=== PATIENT | female | born 1950 | race Two or more races ===

== ENCOUNTER 2018-01-31 11:40 | Outpatient (CLI) | payer BC, MEDICARE ==
[2018-01-31 12:30] LABS: APPEARANCE,URINE SLIGHTLY CLOUDY; BILIRUBIN, URINE NEGATIVE (NEGATIVE); GLUCOSE, URINE (UA) NEGATIVE (NEGATIVE); KETONES,URINE NEGATIVE (NEGATIVE); LEUKOCYTE ESTERASE ,URINE 3+ (NEGATIVE); NITRITE,URINE POSITIVE (NEGATIVE); PH,URINE 6.5 (4.5-8.0); PROTEIN,URINE NEGATIVE (NEGATIVE); UROBILINOGEN,URINE NORMAL MG/DL (0.0-1.0)
[2018-01-31 12:35] LABS: COLOR,URINE YELLOW
== END 2018-01-31 13:40 | disposition home or self-care (01) ==
LOC: LAB 11:40
DX: N39.0 Urinary tract infection, site not specified (principal); R30.0 Dysuria
CPT/HCPCS: 81001; 87086; 87181